=== PATIENT | female | born 1995 | race Caucasian/White ===

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

== ENCOUNTER 2017-01-19 04:51 | Emergency (ER) | payer MEDICAID ==
[~2017-01-19] VITALS: Ht 162.6 cm; Wt 90.0 kg
[2017-01-19 04:56] VITALS: BP 97/62
[2017-01-19] MEDS ORDERED: IBUPROFEN 200 MG TABLET ONE (05:46)
[2017-01-19] MEDS ORDERED: IBUPROFEN 200 MG TABLET PO ONE (06:00)
== END 2017-01-19 05:57 | disposition home or self-care (01) ==
LOC: ED 05:37
DX: H66.001 Acute suppurative otitis media without spontaneous rupture of ear drum, right ear (principal); J20.9 Acute bronchitis, unspecified; K21.9 Gastro-esophageal reflux disease without esophagitis
CPT/HCPCS: 99283

== ENCOUNTER 2017-03-23 01:12 | Emergency (ER) | payer MEDICAID ==
[~2017-03-23] VITALS: Ht 162.6 cm; Wt 89.9 kg
[2017-03-23] MEDS ORDERED: FAMOTIDINE 20 MG/2 ML ONE (02:59)
[2017-03-23] MEDS ORDERED: ONDANSETRON 2MG/ML, 2ML ONE (02:59)
[2017-03-23] MEDS ORDERED: KETOROLAC 30 MG/1 ML ONE (02:59)
[2017-03-23] MEDS ORDERED: KETOROLAC 30 MG/1 ML IVPush ONE (03:00)
[2017-03-23] MEDS ORDERED: FAMOTIDINE 20 MG/2 ML IVP ONE (03:00)
[2017-03-23] MEDS ORDERED: ONDANSETRON 2MG/ML, 2ML IVPush ONE (03:00)
[2017-03-23] MEDS ORDERED: SODIUM CHLORIDE 0.9% 1,000ML IVBOLUS ONE (03:00)
[2017-03-23 03:23] LABS: HCG UR OBC PASS
[2017-03-23 03:28] LABS: ASPARTATE AMINO TRANSFERASE 24 U/L (15-37); BLOOD UREA NITROGEN 15 mg/dL (7-18)
[2017-03-23 05:03] VITALS: BP 97/48
== END 2017-03-23 05:05 | disposition home or self-care (01) ==
LOC: ED 04:08
DX: K29.00 Acute gastritis without bleeding (principal); K21.9 Gastro-esophageal reflux disease without esophagitis
CPT/HCPCS: 36415; 76700; 80053; 81001; 81025; 83690; 85025; 87086; 96361; 96374; 96375; 99285; J1885; J2405; J7030; S0028

== ENCOUNTER 2017-04-16 20:50 | Emergency (ER) | payer MEDICAID ==
[~2017-04-16] VITALS: Ht 162.6 cm; Wt 90.9 kg
[2017-04-16] MEDS ORDERED: KETOROLAC 30 MG/1 ML IM ONE (21:30)
[2017-04-16] MEDS ORDERED: METHOCARBAMOL 750 MG TABLET PO ONE (21:30)
[2017-04-16] MEDS ORDERED: METHOCARBAMOL 750 MG TABLET ONE (21:52)
[2017-04-16] MEDS ORDERED: KETOROLAC 30 MG/1 ML ONE (21:52)
[2017-04-16 22:24] VITALS: BP 101/55
== END 2017-04-16 23:10 | disposition home or self-care (01) ==
LOC: ED 22:45
DX: G44.219 Episodic tension-type headache, not intractable (principal); J02.8 Acute pharyngitis due to other specified organisms; K21.9 Gastro-esophageal reflux disease without esophagitis
CPT/HCPCS: 71010; 87081; 87880; 96372; 99285; J1885

== ENCOUNTER 2017-06-18 16:16 | Emergency (ER) | payer MEDICAID, OTHER ==
[~2017-06-18] VITALS: Ht 162.6 cm; Wt 91.3 kg
[2017-06-18 16:17] VITALS: BP 109/73
[2017-06-18] MEDS ORDERED: OXYcodone/APAP 5/325MG TABLET PO ONE (16:30)
[2017-06-18] MEDS ORDERED: ONDANSETRON ODT 4 MG PO ONE (16:30)
[2017-06-18] MEDS ORDERED: L.E.T SOLUTION TP ONE ×2 (16:30→16:46)
[2017-06-18] MEDS ORDERED: LIDOCAINE 1%, 20ML SQ ONE (16:30)
[2017-06-18] MEDS ORDERED: MICROFIBRILLAR COLLAGEN 1 GM TP ONE ×2 (16:30→16:57)
[2017-06-18] MEDS ORDERED: ONDANSETRON ODT 4 MG ONE (16:46)
[2017-06-18] MEDS ORDERED: OXYcodone/APAP 5/325MG TABLET ONE (16:46)
[2017-06-18] MEDS ORDERED: DIPH,PERTUSS(ACELL),TET VAC/PF 0.5 ML IM-VACC ONE ×2 (16:57→17:00)
== END 2017-06-18 17:58 | disposition home or self-care (01) ==
LOC: ED 17:52
DX: S61.211A Laceration without foreign body of left index finger without damage to nail, initial encounter (principal); S61.213A Laceration without foreign body of left middle finger without damage to nail, initial encounter; W26.0XXA Contact with knife, initial encounter; Y93.89 Activity, other specified; Y92.89 Other specified places as the place of occurrence of the external cause; Y99.8 Other external cause status
CPT/HCPCS: 12001; 12041; 90471; 90715; 99284; Q0162

== ENCOUNTER 2017-06-19 22:53 | Emergency (ER) | payer OTHER ==
[~2017-06-19] VITALS: Ht 160 cm; Wt 93.3 kg
[2017-06-19] MEDS ORDERED: BACITRACIN ZINC OINT 500U/GM, 0.9 GM ONE (23:19)
[2017-06-19 23:42] VITALS: BP 103/48
== END 2017-06-19 23:43 | disposition home or self-care (01) ==
LOC: ED 23:27
DX: S61.211D Laceration without foreign body of left index finger without damage to nail, subsequent encounter (principal); K21.9 Gastro-esophageal reflux disease without esophagitis; X58.XXXD Exposure to other specified factors, subsequent encounter; Y92.89 Other specified places as the place of occurrence of the external cause; Y99.9 Unspecified external cause status
CPT/HCPCS: 99282

== ENCOUNTER 2017-07-24 18:13 | Emergency (ER) | payer MEDICAID, OTHER ==
[~2017-07-24] VITALS: Ht 162.6 cm; Wt 92.7 kg
[2017-07-24] MEDS ORDERED: KETOROLAC 30 MG/1 ML IM ONE (19:00)
[2017-07-24] MEDS ORDERED: ONDANSETRON ODT 8 MG PO ONE (19:00)
[2017-07-24 19:07] LABS: BLOOD UREA NITROGEN 13 mg/dL (7-18)
[2017-07-24 19:09] LABS: HEMATOCRIT 37.6 % (34.6-47.8); HEMOGLOBIN 12.4 g/dL (11.7-16.4); WHITE BLOOD COUNT 9.2 x10^3/uL (4.5-13.2)
[2017-07-24] MEDS ORDERED: ONDANSETRON ODT 4 MG ONE (19:11)
[2017-07-24] MEDS ORDERED: KETOROLAC 30 MG/1 ML ONE (19:11)
[2017-07-24 19:13] LABS: ASPARTATE AMINO TRANSFERASE 20 U/L (15-37)
[2017-07-24 20:50] VITALS: BP 143/60
== END 2017-07-24 20:51 | disposition home or self-care (01) ==
LOC: ED 19:50
DX: R10.84 Generalized abdominal pain (principal); K21.9 Gastro-esophageal reflux disease without esophagitis
CPT/HCPCS: 36415; 80053; 81001; 83690; 84703; 85025; 96372; 99284; J1885; Q0162

== ENCOUNTER 2019-07-22 09:31 | Emergency (ER) | payer MEDICAID, OTHER ==
[~2019-07-22] VITALS: Ht 162.6 cm; Wt 97.8 kg
[2019-07-22 09:40] VITALS: BP 95/62
[2019-07-22] MEDS ORDERED: ACETAMINOPHEN 500 MG TABLET ONE (10:35)
[2019-07-22] MEDS ORDERED: ACETAMINOPHEN 500 MG TABLET PO ONE (11:00)
== END 2019-07-22 11:03 | disposition home or self-care (01) ==
LOC: ED 10:45
DX: J70.5 Respiratory conditions due to smoke inhalation (principal); K21.9 Gastro-esophageal reflux disease without esophagitis
CPT/HCPCS: 36415; 82375; 99283

== ENCOUNTER 2020-09-02 06:13 | Emergency (ER) | payer SELFPAY ==
[~2020-09-02] VITALS: Ht 162.6 cm; Wt 100.2 kg
[2020-09-02 06:46] LABS: BASOPHILS % (AUTO) 0 % (0-1); EOSINOPHILS % (AUTO) 1 % (1-7); LYMPHOCYTES % (AUTO) 25 % (22-44); MEAN CORPUSCULAR HGB CONC 32.9 g/dL (32.4-35.8); MEAN PLATELET VOLUME 8.7 fL (7.4-10.4); MONOCYTES % (AUTO) 6 % (2-9); NEUTROPHILS % (AUTO) 68 % (42-75); PLATELET COUNT 348 x10^3/uL (130-400); RED BLOOD COUNT 4.69 x10^6/uL (3.82-5.3); RED CELL DISTRIBUTION WIDTH 14.7 % (9.6-15.2)
[2020-09-02 06:51] LABS: HCG UR SG 1.023 (1.003-1.030); MICROSCOPIC NOT IND
[2020-09-02 06:53] LABS: ALANINE AMINOTRANSFERASE 50 U/L (12-78); ALBUMIN 3.8 g/dL (3.4-5.0); ANION GAP 7 mmol/L (5-15); CALCIUM 8.5 mg/dL (8.5-10.1); CHLORIDE 107 mmol/L (98-107); CREATININE 0.69 mg/dL (0.55-1.02)
[2020-09-02 06:56] LABS: ALKALINE PHOSPHATASE 102 U/L (45-117); BILIRUBIN,TOTAL 0.4 mg/dL (0.2-1.0); MD NO; TOTAL PROTEIN 8.1 g/dL (6.4-8.2)
[2020-09-02] MEDS ORDERED: KETOROLAC 30 MG/1 ML ONE ×2 (07:00→07:05)
[2020-09-02] MEDS ORDERED: KETOROLAC 30 MG/1 ML IVPush ONE (07:00)
--- NOTE | 2020-09-02 07:03 | NUR ---
Pt medicated per MAR for 8/10 L flank pain. US tech at bedside to perform ordered studies.
--- NOTE | 2020-09-02 07:03 | NUR ---
REPORT RECIVED, PT LAYING ON BED , NO DISTRESS
--- NOTE | 2020-09-02 07:30 | NUR ---
PT REASSESSED FOR PAIN, STATED NO RELIEF, NOTIFIED MD AND ADMIN PAIN MEDS.
[2020-09-02] MEDS ORDERED: MORPHINE SULFATE 4 MG/ML, 1ML ONE (07:35)
[2020-09-02] MEDS ORDERED: ONDANSETRON 2MG/ML, 2ML ONE (07:35)
[2020-09-02] MEDS ORDERED: ONDANSETRON 2MG/ML, 2ML IVPush ONE (08:00)
[2020-09-02] MEDS ORDERED: MAALOX/HYOSCYAMINE/LIDOCAINE 45 ML BTL PO ONE (08:00)
[2020-09-02] MEDS ORDERED: morphine SULFATE 10 MG/ML, 1ML IV ONE (08:00)
[2020-09-02] MEDS ORDERED: MAALOX/HYOSCYAMINE/LIDOCAINE 45 ML BTL ONE (08:19)
--- NOTE | 2020-09-02 08:24 | NUR ---
WALKED IN TO ROOM TO REASSESS PT WAS SLEEPING, ASKED IF SHE HAD ANY RELIEF, PT SAID YES THEN STATED 05/09. PT MEDICATED PER MAR WITH GI COCKTAIL.
--- NOTE | 2020-09-02 08:49 | NUR ---
Dr. Jimenez at bedside to discuss POC with pt.
[2020-09-02 09:18] VITALS: BP 110/60
== END 2020-09-02 09:39 | disposition home or self-care (01) ==
LOC: ED 08:58
DX: R10.12 Left upper quadrant pain (principal); R07.89 Other chest pain; R06.02 Shortness of breath; R05 Cough; R11.0 Nausea
CPT/HCPCS: 36415; 76770; 80053; 81003; 81025; 85025; 96374; 96375; 99284; J1885; J2270; J2405

== ENCOUNTER 2020-12-01 09:04 | Emergency (ER) | payer SELFPAY ==
[~2020-12-01] VITALS: Ht 162.6 cm; Wt 96.5 kg
[~2020-12-01 09:04] MED LIST changes: +HYDR-1067 PO; -HYDR-3240 PO
[2020-12-01] MEDS ORDERED: SODIUM CHLORIDE FLUSH 10ML SYR IVF ONE (09:30)
[2020-12-01] MEDS ORDERED: DIPHENHYDRAMINE 50 MG/ML, 1ML IVPush ONE (09:30)
[2020-12-01] MEDS ORDERED: PROCHLORPERAZINE 5 MG/ML, 2ML IVPush ONE (09:30)
[2020-12-01] MEDS ORDERED: SODIUM CHLORIDE 0.9% 1,000ML IVBOLUS ONE (09:30)
[2020-12-01] MEDS ORDERED: KETOROLAC 30 MG/1 ML IVPush ONE (09:30)
[2020-12-01] MEDS ORDERED: TOPI25CA5 PO (09:31)
--- NOTE | 2020-12-01 09:31 | NUR ---
PT IS A 25F WITH COMPLAINTS OF HEADACHE, NAUSEA, BLURRY VISION IN THE RIGHT EYE SINCE 0700 MORNING. THIS HAS HAPPENED BEFORE AND HER DR STARTED HER ON TOPOMAX FOR MIGRAINES. PROVIDER AT BEDSIDE FOR EVAL AND POC. MOTHER AT BEDSIDE. BP, AND SP02 MONITORS IN PLACE. CALL LIGHT WITHIN REACH. LIGHTS DIMMED AND WARMED BLANKET PROVIDED.
[2020-12-01] MEDS ORDERED: PROCHLORPERAZINE 5 MG/ML, 2ML ONE (09:39)
[2020-12-01] MEDS ORDERED: DIPHENHYDRAMINE 50 MG/ML, 1ML ONE (09:39)
[2020-12-01] MEDS ORDERED: KETOROLAC 30 MG/1 ML ONE (09:39)
[2020-12-01] MEDS ORDERED: ACETAMINOPHEN 500 MG TABLET PO ONE (10:30)
[2020-12-01 10:35] VITALS: BP 94/53
[2020-12-01] MEDS ORDERED: ACETAMINOPHEN 500 MG TABLET ONE (10:36)
--- NOTE | 2020-12-01 11:04 | NUR ---
PT REC'VD DISCHARGE INSTRUCTIONS AND EDUCATION. PT HAD NOFURTHER QUESTIONS. PT AMBULATED TO DC AREA WITH MOM, STEADY GAIT. MOM TO DRIVE PT HOME.
== END 2020-12-01 11:08 | disposition home or self-care (01) ==
LOC: ED 10:05
DX: R51.9 Headache, unspecified (principal); H54.7 Unspecified visual loss; R11.0 Nausea; R21 Rash and other nonspecific skin eruption
CPT/HCPCS: 96374; 96375; 99284; J0780; J1200; J1885

== ENCOUNTER 2020-12-14 13:46 | Emergency (ER) | payer SELFPAY ==
[~2020-12-14] VITALS: Ht 162.6 cm; Wt 97.0 kg
[~2020-12-14 13:46] MED LIST changes: +TOPI25CA5 PO
[2020-12-14] MEDS ORDERED: MORPHINE SULFATE 4 MG/ML, 1ML ONE (14:37)
--- NOTE | 2020-12-14 14:49 | NUR ---
PT RESTING WITH LIGHTS OFF AND FRIEND AT BEDSIDE. CALL LIGHT WITHIN REACH. BP AND SP02 MONITORS IN PLACE. AWAITING EVAL BY ER PROVIDER
[2020-12-14] MEDS ORDERED: METOCLOPRAMIDE 5 MG/ML, 2ML ONE (15:28)
[2020-12-14] MEDS ORDERED: KETOROLAC 30 MG/1 ML ONE (15:29)
[2020-12-14] MEDS ORDERED: KETOROLAC 30 MG/1 ML IM ONE (15:30)
[2020-12-14] MEDS ORDERED: METOCLOPRAMIDE 5 MG/ML, 2ML IM ONE (15:30)
--- NOTE | 2020-12-14 15:37 | NUR ---
MEDICATED PER ORDERS, FRIEND AT BEDSIDE AND CALL LIGHT WITHIN REACH.
[2020-12-14 17:05] VITALS: BP 106/52
== END 2020-12-14 17:09 | disposition home or self-care (01) ==
LOC: ED 14:36
DX: G43.009 Migraine without aura, not intractable, without status migrainosus (principal); R11.0 Nausea; R20.0 Anesthesia of skin; K21.9 Gastro-esophageal reflux disease without esophagitis
CPT/HCPCS: 96372; 99285; J1885; J2765

== ENCOUNTER 2021-01-28 19:27 | Emergency (ER) | payer OTHER ==
[~2021-01-28] VITALS: Ht 162.6 cm; Wt 96.2 kg
[~2021-01-28 19:27] MED LIST changes: -HYDR-1067 PO; +HYDR-2214 PO
[2021-01-28 20:06] VITALS: BP 110/48
--- NOTE | 2021-01-28 20:16 | NUR ---
sas statistical programmer: pt from lobby to room 8
[2021-01-28] MEDS ORDERED: IBUPROFEN 200 MG TABLET ONE (21:14)
[2021-01-28] MEDS ORDERED: HYDROcodone/APAP 5/325 TABLET ONE (21:15)
[2021-01-28] MEDS ORDERED: IBUPROFEN 200 MG TABLET PO ONE (21:30)
[2021-01-28] MEDS ORDERED: HYDROcodone/APAP 5/325 TABLET PO ONE (21:30)
== END 2021-01-28 21:37 | disposition home or self-care (01) ==
LOC: ED 21:31
DX: S33.5XXA Sprain of ligaments of lumbar spine, initial encounter (principal); K21.9 Gastro-esophageal reflux disease without esophagitis; G43.909 Migraine, unspecified, not intractable, without status migrainosus; V49.49XA Driver injured in collision with other motor vehicles in traffic accident, initial encounter; Y93.89 Activity, other specified; Y92.89 Other specified places as the place of occurrence of the external cause; Y99.8 Other external cause status
CPT/HCPCS: 72072; 72110; 99284

== ENCOUNTER 2021-03-23 05:52 | Emergency (ER) | payer SELFPAY ==
[~2021-03-23] VITALS: Ht 162.6 cm; Wt 96.2 kg
[2021-03-23 05:53] VITALS: BP 100/58
[2021-03-23] MEDS ORDERED: BENZONATATE 100 MG CAPSULE ONE (06:21)
[2021-03-23] MEDS ORDERED: BENZONATATE 100 MG CAPSULE PO ONE (06:30)
--- NOTE | 2021-03-23 06:50 | NUR ---
TOOK REPORT FROM IAN SINCLAIR, ASSUME CARE AT THIS TIME.
[2021-03-23] MEDS ORDERED: ONDANSETRON ODT 4 MG PO ONE (07:00)
[2021-03-23] MEDS ORDERED: ONDANSETRON ODT 4 MG ONE (07:14)
--- NOTE | 2021-03-23 07:51 | NUR ---
Patient given discharge instructions and Rx, they have confirmed that they understand the instructions. Patient ambulatory with steady gait. NAD, all questions answered appropriately, denies additional needs at this time. No personal belongings left in room after discharge.
[2021-03-23] MEDS ORDERED: KETOROLAC 30 MG/1 ML ONE (07:57)
[2021-03-23] MEDS ORDERED: KETOROLAC 30 MG/1 ML IM ONE (08:00)
== END 2021-03-23 08:08 | disposition home or self-care (01) ==
LOC: ED 06:22
DX: B34.9 Viral infection, unspecified (principal); Z20.822 Contact with and (suspected) exposure to COVID-19; R05 Cough; R07.89 Other chest pain; R50.9 Fever, unspecified; K21.9 Gastro-esophageal reflux disease without esophagitis
CPT/HCPCS: 71045; 93005; 96372; 99285; J1885; Q0162; U0003; U0005

== ENCOUNTER 2021-03-23 21:12 | Emergency (ER) | payer SELFPAY ==
[~2021-03-23] VITALS: Ht 165.1 cm; Wt 96.4 kg
--- NOTE | 2021-03-23 23:22 | NUR ---
PT AMBULATED TO ROOM. PLACED ON O2 SAT PROBE AND EVALUATED. MD TO SEE PT. PT A&OX4, HAS A DRY COUGH, AND CHANGED INTO GOWN FOR ASSESMENT. PT IN BED WITHOUT ISSUE AND PTS MOM AT BEDSIDE.
[2021-03-23] MEDS ORDERED: KETOROLAC 30 MG/1 ML ONE (23:47)
[2021-03-24] MEDS ORDERED: KETOROLAC 30 MG/1 ML IM ONE
--- NOTE | 2021-03-24 00:19 | NUR ---
PT A&OX4, NO ACUTE DISTRESS, MILD COUGH NOTED. F/U AND D/C INSTRUCTIONS GIVEN TO PT WITH PRESCRIPTIONS AND SHE V/U. PT AMBULATORY AND WALKED TO DISCHARGE DESK.
== END 2021-03-24 00:21 | disposition home or self-care (01) ==
LOC: ED 21:42
DX: R04.0 Epistaxis (principal); M94.0 Chondrocostal junction syndrome [Tietze]; B34.9 Viral infection, unspecified; K21.9 Gastro-esophageal reflux disease without esophagitis; G43.909 Migraine, unspecified, not intractable, without status migrainosus
CPT/HCPCS: 99283

== ENCOUNTER 2021-04-28 21:00 | Emergency (ER) | payer SELFPAY ==
[~2021-04-28] VITALS: Ht 162.6 cm; Wt 94.7 kg
[2021-04-28] MEDS ORDERED: SODIUM CHLORIDE FLUSH 10ML SYR IVF ONE (22:00)
[2021-04-28] MEDS ORDERED: ONDANSETRON 2MG/ML, 2ML IVPush ONE (22:00)
--- NOTE | 2021-04-28 22:01 | NUR ---
pt off unit in imaging.
[2021-04-28] MEDS ORDERED: MORPHINE SULFATE 4 MG/ML, 1ML ONE (22:12)
[2021-04-28] MEDS ORDERED: ONDANSETRON 2MG/ML, 2ML ONE (22:12)
--- NOTE | 2021-04-28 22:43 | NUR ---
PT C/O OF RIGHT SIDED ABDOMINAL PAIN THAT RADIATES TO HER BACK SINCE 1 WEEK AGO. PT HAS N/V/D. PT ATTACHED TO MONITORS. RADHA PHAN. [facility] BED IN LOW, RAILS ENGAGEDD. CALL LIGHT ON LAP. MOM AT [facility].
[2021-04-28] MEDS: MORPHINE SULFATE 4 MG/ML, 1ML IVPush PRN (23:05)
[2021-04-28 23:37] LABS: BASOPHILS % (AUTO) 0 % (0-1); EOSINOPHILS % (AUTO) 1 % (1-7); LYMPHOCYTES % (AUTO) 26 % (22-44); MEAN CORPUSCULAR HEMOGLOBIN 25.9 pg (27.0-34.8); MEAN CORPUSCULAR HGB CONC 33.2 g/dL (32.4-35.8); MEAN PLATELET VOLUME 8.7 fL (7.4-10.4); MONOCYTES % (AUTO) 6 % (2-9); NEUTROPHILS % (AUTO) 67 % (42-75); PLATELET COUNT 299 x10^3/uL (130-400); RED BLOOD COUNT 5.05 x10^6/uL (3.82-5.3); RED CELL DISTRIBUTION WIDTH 16.5 % (9.6-15.2)
[2021-04-28 23:50] LABS: ALANINE AMINOTRANSFERASE 31 U/L (12-78); ALBUMIN 3.8 g/dL (3.4-5.0); ANION GAP 7 mmol/L (5-15); CALCIUM 9.1 mg/dL (8.5-10.1); CHLORIDE 106 mmol/L (98-107)
[2021-04-28 23:55] LABS: ALKALINE PHOSPHATASE 96 U/L (45-117); BILIRUBIN,TOTAL 0.4 mg/dL (0.2-1.0); CREATININE 0.65 mg/dL (0.55-1.02); TOTAL PROTEIN 8.4 g/dL (6.4-8.2)
[2021-04-29] MEDS ORDERED: PROMETHAZINE 25 MG/ML, 1ML IM ONE
[2021-04-29] MEDS ORDERED: MORPHINE SULFATE 4 MG/ML, 1ML ONE ×3 (00:43→01:00)
[2021-04-29] MEDS ORDERED: PROMETHAZINE 25 MG/ML, 1ML ONE ×2 (00:43→00:50)
[2021-04-29] MEDS: MORPHINE SULFATE 4 MG/ML, 1ML IVPush PRN (00:46)
--- NOTE | 2021-04-29 00:58 | NUR ---
Patient is resting comfortably in bed. Bed in lowest, rails engaged, call light on lap. Vital Signs within normal limits. WCTM.
--- NOTE | 2021-04-29 01:03 | NUR ---
2ND DOSE OF 4MG MORPHINE I FORGOT WHICH MED WAS WHICH WITH PHENERGAN AND MORPHINE. WASTED BOTH MEDS WITH CHARGE NURSE WITNESS. 2ND MISSED MORPHINE WAS DUE TO ALL THE MORPHINE LEAKING OUT DUE TO PTS IV PROBLEMS. MED WAS WASTED. 3RD DOSE WAS A SUCCESS. PT RESTING IN BED. NADN. WCTM. PT REPORTS FEELING BETTER.
[2021-04-29 01:05] LABS: MICROSCOPIC AUTO
[2021-04-29] MEDS ORDERED: KETOROLAC 30 MG/1 ML ONE (01:47)
[2021-04-29] MEDS ORDERED: KETOROLAC 30 MG/1 ML IVPush ONE (02:00)
[2021-04-29 02:38] VITALS: BP 97/57
--- NOTE | 2021-04-29 02:49 | NUR ---
Patient/Caregiver given discharge instructions and they have confirmed that they understand the instructions. Patient ambulatory with steady gait. NAD, all questions answered appropriately, denies additional needs at this time. No personal belongings left in room after discharge.
== END 2021-04-29 02:50 | disposition home or self-care (01) ==
LOC: ED 23:44
DX: K29.00 Acute gastritis without bleeding (principal); N30.00 Acute cystitis without hematuria; R10.84 Generalized abdominal pain; K21.9 Gastro-esophageal reflux disease without esophagitis; G43.909 Migraine, unspecified, not intractable, without status migrainosus
CPT/HCPCS: 36415; 71045; 74176; 76700; 80053; 81001; 83690; 84703; 85025; 87077; 87086; 87186; 96372; 96374; 96375; 96376; 99285; J1885; J2270; J2405; J2550

== ENCOUNTER 2021-05-01 23:20 | Emergency (ER) | payer MEDICAID ==
[~2021-05-01] VITALS: Ht 162.6 cm; Wt 94.8 kg
[2021-05-02 00:03] LABS: MICROSCOPIC INDICATED
--- NOTE | 2021-05-02 01:28 | NUR ---
Break RN: first contact with patient. Patient presents to ER c/o right side flank and abd pain with N/V. Patient states this started last week. Hx of same which she states she had a kidney infection. +fevers at home; self admin Tylenol at approx 1800 and Ibuprofen at approx 2200. Last time she vomited was at 2200. Patient is in NAD. Respirations even and unlabored.
[2021-05-02 01:34] VITALS: BP 103/42
[2021-05-02 01:45] LABS: HCG UR SG 1.008 (1.003-1.030)
[2021-05-02] MEDS ORDERED: ONDANSETRON 2MG/ML, 2ML IVPush ONE ×2 (02:00→04:30)
[2021-05-02] MEDS ORDERED: HYDROcodone/APAP 5/325 TABLET PO ONE (02:00)
[2021-05-02] MEDS ORDERED: ONDANSETRON 2MG/ML, 2ML ONE ×2 (02:17→04:05)
[2021-05-02] MEDS ORDERED: HYDROcodone/APAP 5/325 TABLET ONE (02:18)
[2021-05-02 02:42] LABS: BASOPHILS % (AUTO) 1 % (0-1); EOSINOPHILS % (AUTO) 1 % (1-7); LYMPHOCYTES % (AUTO) 31 % (22-44); MEAN CORPUSCULAR HEMOGLOBIN 26.1 pg (27.0-34.8); MEAN CORPUSCULAR HGB CONC 33.3 g/dL (32.4-35.8); MEAN PLATELET VOLUME 8.5 fL (7.4-10.4); MONOCYTES % (AUTO) 6 % (2-9); NEUTROPHILS % (AUTO) 61 % (42-75); PLATELET COUNT 305 x10^3/uL (130-400); RED BLOOD COUNT 4.63 x10^6/uL (3.82-5.3); RED CELL DISTRIBUTION WIDTH 16.1 % (9.6-15.2)
[2021-05-02 02:51] LABS: ALANINE AMINOTRANSFERASE 28 U/L (12-78); ALBUMIN 3.4 g/dL (3.4-5.0); ANION GAP 6 mmol/L (5-15); CALCIUM 8.4 mg/dL (8.5-10.1); CHLORIDE 109 mmol/L (98-107); CREATININE 0.62 mg/dL (0.55-1.02)
[2021-05-02 02:54] LABS: ALKALINE PHOSPHATASE 84 U/L (45-117); BILIRUBIN,TOTAL 0.3 mg/dL (0.2-1.0); TOTAL PROTEIN 7.6 g/dL (6.4-8.2)
[2021-05-02] MEDS ORDERED: OMNIPAQUE 350 MG/ML, 100ML BOTTLE ONE (03:15)
[2021-05-02] MEDS ORDERED: KETOROLAC 30 MG/1 ML ONE (03:29)
[2021-05-02] MEDS ORDERED: KETOROLAC 30 MG/1 ML IVPush ONE (03:30)
[2021-05-02] MEDS ORDERED: MORPHINE SULFATE 4 MG/ML, 1ML ONE (04:05)
[2021-05-02] MEDS ORDERED: SULFAMETH./TRIMETHOPRIM DS 800MG/160MG TABLET PO ONE (04:30)
[2021-05-02] MEDS ORDERED: MORPHINE SULFATE 4 MG/ML, 1ML IVPush PRN (04:30)
[2021-05-02] MEDS ORDERED: SULFAMETH./TRIMETHOPRIM DS 800MG/160MG TABLET ONE (04:31)
--- NOTE | 2021-05-02 04:39 | NUR ---
Patient/Caregiver given discharge instructions and they have confirmed that they understand the instructions. Patient ambulatory with steady gait. NAD, all questions answered appropriately, denies additional needs at this time. No personal belongings left in room after discharge. Ambulated out of Ed, steady gait. PIV removed.
== END 2021-05-02 04:52 | disposition home or self-care (01) ==
LOC: ED 05-02 01:42
DX: N10 Acute pyelonephritis (principal); G43.909 Migraine, unspecified, not intractable, without status migrainosus; K21.9 Gastro-esophageal reflux disease without esophagitis
CPT/HCPCS: 36415; 74177; 80053; 81001; 81025; 83690; 85025; 87077; 87086; 87186; 96374; 96375; 96376; 99285; J1885; J2270; J2405; Q9967

== ENCOUNTER 2021-05-08 23:04 | Emergency (ER) | payer MEDICAID ==
[~2021-05-08] VITALS: Ht 160 cm; Wt 94.3 kg
--- NOTE | 2021-05-08 23:29 | NUR ---
PT C/O OF ABDOMINAL PAIN WITH NAUSEA AND VOMITTING. STATES SHE HAD A UTI 2 WEEKS AGO AND TOOK ABX AND LAST FEW DAYS PAIN HAS GOTTEN WORSE. REPORTS TAKING LL HER ABX CORRECTLY. DENIES BURNING O PAIN DURING URINATION, CP, AND SOB. ATTACHED TO MONITORS, VSS, NADN, NO MOANING O GROANING. BED IN LOW, RSAILS ENGAGED, CALL LIGHT ON LAP. PT AMBULATED TO BATHROOM AND BACK WITH DTEADY GAIT. OBTAINED UA. WCTM
[2021-05-08] MEDS ORDERED: ONDANSETRON 2MG/ML, 2ML ONE (23:49)
[2021-05-08] MEDS ORDERED: KETOROLAC 30 MG/1 ML ONE (23:49)
[2021-05-09] LABS: MICROSCOPIC INDICATED
[2021-05-09] MEDS ORDERED: SODIUM CHLORIDE 0.9% 1,000ML IVBOLUS ONE
[2021-05-09] MEDS ORDERED: ONDANSETRON 2MG/ML, 2ML IVPush ONE
[2021-05-09] MEDS ORDERED: KETOROLAC 30 MG/1 ML IVPush ONE
[2021-05-09 00:09] LABS: ALANINE AMINOTRANSFERASE 32 U/L (12-78); ALBUMIN 3.3 g/dL (3.4-5.0); ANION GAP 7 mmol/L (5-15); BASOPHILS % (AUTO) 0 % (0-1); CALCIUM 8.1 mg/dL (8.5-10.1); CHLORIDE 105 mmol/L (98-107); CREATININE 0.89 mg/dL (0.55-1.02); EOSINOPHILS % (AUTO) 1 % (1-7); LYMPHOCYTES % (AUTO) 22 % (22-44); MEAN CORPUSCULAR HEMOGLOBIN 25.8 pg (27.0-34.8); MEAN CORPUSCULAR HGB CONC 32.8 g/dL (32.4-35.8); MEAN PLATELET VOLUME 8.8 fL (7.4-10.4); MONOCYTES % (AUTO) 7 % (2-9); NEUTROPHILS % (AUTO) 70 % (42-75); PLATELET COUNT 291 x10^3/uL (130-400); RED BLOOD COUNT 4.35 x10^6/uL (3.82-5.3); RED CELL DISTRIBUTION WIDTH 15.7 % (9.6-15.2)
[2021-05-09 00:14] LABS: ALKALINE PHOSPHATASE 92 U/L (45-117); BILIRUBIN,TOTAL 0.5 mg/dL (0.2-1.0); TOTAL PROTEIN 7.3 g/dL (6.4-8.2)
[2021-05-09] MEDS ORDERED: MORPHINE SULFATE 4 MG/ML, 1ML IVPush ONE (01:30)
[2021-05-09] MEDS ORDERED: MORPHINE SULFATE 4 MG/ML, 1ML ONE (01:45)
[2021-05-09 03:28] VITALS: BP 102/56
== END 2021-05-09 03:32 | disposition home or self-care (01) ==
LOC: ED 23:54
DX: N30.00 Acute cystitis without hematuria (principal); R10.84 Generalized abdominal pain; K21.9 Gastro-esophageal reflux disease without esophagitis; G43.909 Migraine, unspecified, not intractable, without status migrainosus
CPT/HCPCS: 36415; 76700; 80053; 81001; 83690; 84703; 85025; 87086; 96361; 96374; 96375; 99284; J1885; J2270; J2405; J7030

== ENCOUNTER 2021-06-11 23:55 | Emergency (ER) | payer MEDICAID ==
[~2021-06-11] VITALS: Ht 162.6 cm; Wt 85.0 kg
[2021-06-12 01:40] LABS: BASOPHILS % (AUTO) 1 % (0-1); EOSINOPHILS % (AUTO) 1 % (1-7); LYMPHOCYTES % (AUTO) 35 % (22-44); MEAN CORPUSCULAR HEMOGLOBIN 26.6 pg (27.0-34.8); MEAN CORPUSCULAR HGB CONC 33.9 g/dL (32.4-35.8); MEAN PLATELET VOLUME 8.5 fL (7.4-10.4); MONOCYTES % (AUTO) 6 % (2-9); NEUTROPHILS % (AUTO) 58 % (42-75); PLATELET COUNT 316 x10^3/uL (130-400); RED BLOOD COUNT 4.57 x10^6/uL (3.82-5.3); RED CELL DISTRIBUTION WIDTH 16.3 % (9.6-15.2)
[2021-06-12 01:50] LABS: ALANINE AMINOTRANSFERASE 42 U/L (12-78); ALBUMIN 3.4 g/dL (3.4-5.0); ANION GAP 5 mmol/L (5-15); CALCIUM 8.2 mg/dL (8.5-10.1); CHLORIDE 108 mmol/L (98-107); CREATININE 0.59 mg/dL (0.55-1.02)
[2021-06-12 01:52] LABS: ALKALINE PHOSPHATASE 95 U/L (45-117); BILIRUBIN,TOTAL 0.3 mg/dL (0.2-1.0); TOTAL PROTEIN 7.7 g/dL (6.4-8.2)
[2021-06-12 04:42] LABS: MICROSCOPIC AUTO
--- NOTE | 2021-06-12 05:27 | NUR ---
PATIENT RESTING IN STRETCHER WITH EYES CLOSED. NAD. AWAITING ERP. WILL CONTINUE TO MONITOR.
--- NOTE | 2021-06-12 05:34 | NUR ---
MD WINSTON AT BEDSIDE
--- NOTE | 2021-06-12 06:54 | NUR ---
REPORT GIVEN TO YAHIR HO.
[2021-06-12 07:22] VITALS: BP 99/45
== END 2021-06-12 07:25 | disposition home or self-care (01) ==
LOC: ED 06-12 05:40
DX: R07.89 Other chest pain (principal); F45.8 Other somatoform disorders; R42 Dizziness and giddiness; F41.9 Anxiety disorder, unspecified; R06.02 Shortness of breath; K21.9 Gastro-esophageal reflux disease without esophagitis
CPT/HCPCS: 36415; 71045; 80053; 81001; 85025; 87086; 93005; 99285